=== PATIENT | female | born 1990 | race Caucasian/White ===

== ENCOUNTER 2020-07-17 10:58 | Outpatient (CLI) | payer OTHER | END 2020-07-17 11:18 | disposition home or self-care (01) | LOC: MRI 10:58 | DX: M23.204 Derangement of unspecified medial meniscus due to old tear or injury, left knee (principal) | CPT/HCPCS: 73721 ==

== ENCOUNTER 2023-02-20 08:28 | Outpatient (CLI) | payer OTHER | END 2023-02-20 08:38 | disposition home or self-care (01) | LOC: RAD 08:28 | PROVIDERS: ATTEND Internal Medicine | DX: Z01.818 Encounter for other preprocedural examination (principal) ==